=== PATIENT | male | born 1980 | race Caucasian/White ===

== ENCOUNTER 2020-07-25 19:30 | Emergency (ER) | payer OTHER, SELFPAY ==
[2020-07-25 19:56] VITALS: TEMP 37; O2SAT 94; BMI 37.8
--- NOTE | 2020-07-25 20:22 | ED.URI ---
HPI - URI/Sore Throat General Chief Complaint: Upper Respiratory Symptoms Stated Complaint: Asthma Source: patient Mode of arrival: ambulatory Limitations: no limitations History of Present Illness HPI Narrative: 40-year-old male with past medical history of asthma presents with 3 days of chest pressure, shortness of breath, oxygen saturation of 90%, cough, sore throat and headache. He does not describe any other symptoms. MD elicited complaint: fever, cough, sore throat and nasal congestion Onset (ago): day(s) (3) Consistency: constant Severity: moderate Pain scale (0-10): 6 Description of mucous: clear and watery Able to tolerate fluids by mouth: Yes Exacerbating factors: swallowing and exertion Relieving factors: nothing Associated symptoms: fever, chills, myalgias, headache, nasal congestion, sore throat, cough, chest pain and nausea Treatments prior to arrival: cold medicine Related Data Previous Rx's Medication Instructions Recorded dexamethasone 4 mg PO DAILY 5 Days #5 tab 07/25/20 Allergies Allergy/AdvReac Type Severity Reaction Status Date / Time morphine [MORPHINE] Allergy Unknown VOMITING Verified 07/25/20 20:29 Review of Systems Review of Systems: Constitutional: positive Fever, positive Chills, positive fatigue, positive Malaise ENT/Mouth: positive sore throat, positive runny nose Eyes: No Discharge Cardiovascular: No Chest Pain, No SOB Respiratory: No Cough, No Sputum, No Wheezing, No Smoke Exposure, No Dyspnea Gastrointestinal: No Nausea, No Vomiting, No Diarrhea Genitourinary: no irregular bleeding, No Dysuria, No Urinary Frequency, No Hematuria, No Urinary Incontinence, No Urgency, No Flank Pain, Musculoskeletal: positive Myalgia Skin: No rash Neuro: No Headache Yes all other systems are reviewed and are negative [facility] Past Medical History Attestation statement: The following information was validated with the patient. Medical History (Updated 07/25/20 @ 21:51 by Charisma Jesus NP) Asthma Social History Social History Alcohol intake: never Smoked in Last 30 Days: No Use of substances other than those prescribed or required for medical reasons: No Advance Directives: No Advance Directives Information Provided: Yes Physical Exam Vital Signs: Vital Signs: Last Vital Signs Temp 98.7 F 07/25/20 22:00 Pulse 114 H 12/17/20 22:00 Resp 14 07/25/20 22:00 BP 110/59 L 07/25/20 22:00 Pulse Ox 94 07/25/20 22:00 Body Mass Index 37.8 Appearance: Alert. Oriented X3. Moderate distress. Eyes: Pupils equal, round and reactive to light. ENT: Pharynx normal. Neck: Normal inspection. Neck supple. CVS: Tachycardic heart rate and rhythm. Pulses normal. Respiratory: No respiratory distress. Breath sounds diminished Abdomen: Soft and nontender. Skin: Skin warm and dry. Normal skin color. Normal skin turgor. Extremities: No lower extremity edema. Neuro: No motor deficit. No sensory deficit. Course Course Course Narrative: 40-year-old male with past medical history of asthma presents with COVID-19 symptoms. His O2 sat is 93% on room air and is tachycardic, plan is to test for COVID-19 rapid. We will resuscitate with 1 L of fluid however we will be cautious about the amount of fluid resuscitated as this is highly suspicious of a COVID viral infection. Patient is COVID positive, requiring 2 L of O2 NC to keep oxygen saturation above 92%. Plan of care is for ambulatory pulse ox. We will give dexamethasone. O2 sat ambulatory was 95 96%, plan of care is to discharge home. Patient verbalized understanding of and agrees to plan of care. MDM - URI/Sore Throat Differential Diagnosis Differential diagnosis: Likely upper respiratory infection, viral infection, bronchitis and influenza Medical Records Attestation: I reviewed the patient's medical records. Lab Data Attestation: I reviewed the patient's lab results. Result diagrams: 07/25/20 20:55 07/25/20 20:55 Labs: Lab Results 07/25/20 07/25/20 07/25/20 Range/Units 20:54 20:55 20:55 WBC 7.3 (4.8-10.8) X10*3/uL RBC 5.58 (4.60-5.80) X10*6/uL Hgb 15.9 (14.0-18.0) g/dl Hct 45.4 (42-52) % MCV 81.4 (80-98) fL MCH 28.5 (27.0-33.0) pg MCHC 35.0 (31.0-36.0) g/dl RDW 12.5 (11.0-16.0) % Plt Count 219 (160-400) X10*3/uL MPV 11.3 (9.4-12.4) fL Immature Gran % (Auto) 0.4 (0.0-0.4) % Neut % (Auto) 83.4 H (45-73) % Lymph % (Auto) 11.8 L (20-40) % [place] % (Auto) 4.3 (2-11) % Eos % (Auto) 0.0 (0-4) % Baso % (Auto) 0.1 (0-2) % Lymph # (Auto) 0.9 L (1.2-4.9) X10*3/uL [place] # (Auto) 0.3 (0.1-1.2) X10*3/uL Eos # (Auto) 0.0 (0.0-0.4) X10*3/uL Baso # (Auto) 0.0 (0.0-0.2) X10*3/uL Abs Immat Gran (auto) 0.03 (0.00-0.03) X10*3/uL Absolute Neuts (auto) 6.1 (2.0-8.3) X10*3/uL Absolute Nucleated RBC 0.000 (0.0-0.012) X10*3/uL Nucleated RBC % (auto) 0.0 (0.0-0.2) /100WBC Sodium 135 (135-145) mmol/L Potassium 3.9 (3.3-5.1) mmol/l Chloride 100 (96-108) mmol/L Carbon Dioxide 26 (22-29) mmol/L Anion Gap 13 (12-20) BUN 16 (9-16) mg/dL Creatinine 1.20 (0.5-1.4) mg/dL Estim Creat Clear Calc 87.3 Estimated GFR > 60 Random Glucose 92 (60-115) mg/dL Calcium 8.3 L (8.4-10.2) mg/dL COVID-19 (HERMILO) Positive A (Negative) COVID-19 Clin Com See Note Imaging Data Chest x-ray: Attestation: I personally reviewed and interpreted this imaging study as follows: Radiologist's impression: CLINICAL INFORMATION: Asthma. COMPARISON: None. TECHNIQUE: An AP view of the chest is provided. FINDINGS: The cardiac silhouette is not enlarged. The mediastinal and hilar contours are unremarkable. There are neither pleural effusions nor pneumothoraces. There is mild patchy airspace disease at both lung bases, left greater than right. The osseous structures are unremarkable. XR/XR chest 1V IMPRESSION: Mild left greater than right bibasilar patchy airspace disease. Recommendation is for a followup chest series to be obtained following treatment and/or resolution of symptoms to assure resolution of this appearance. Discharge Plan Discharge Clinical Impression: Viral infection, COVID-19 Upper respiratory infection Qualifiers: URI type: unspecified viral URI Qualified Code(s): J06.9 - Acute upper respiratory infection, unspecified Patient Disposition: Home, Self-Care Instructions: COVID-19 (Coronavirus Disease 2019) (ED) Additional Instructions: You tested positive for COVID-19. Maintain social isolation guidelines per state and Federal regulations. It is your responsibility to maintain these guidelines. We prescribe steroids, dexamethasone 4 mg. Please take this for the next 5 days preferably in the morning. If symptoms get worse or have difficulty breathing please return to the emergency department immediately. Thank you for choosing this emergency department for evaluation. Please follow-up with primary care physician as needed. Return to the emergency department for any new, concerning, or worsening symptoms. Prescriptions: New dexamethasone 4 mg tablet 4 mg PO DAILY 5 Days Qty: 5 RF: 0 Interventions: ED Discharge Assessment Last Done: 07/25/20 22:39 Discharge Date/Time: 07/25/20 22:51
[2020-07-25 20:40] VITALS: O2SAT 93
[2020-07-25 20:51] VITALS: BP 104/68; PULSE 113; RESP 19; TEMP 38.7; O2SAT 94
[2020-07-25] MEDS: 0.9 % Sodium Chloride 1,000 ML 999 ML IVCONT (20:51)
[2020-07-25] MEDS: Acetaminophen 325 MG TABLET 975 MG PO (21:04)
[2020-07-25 21:05] LABS: MANUAL DIFF FLAG NO
[2020-07-25 21:07] LABS: Basophils Percent Auto 0.1 % (0-2); Hematocrit 45.4 % (42-52); Hemoglobin 15.9 g/dl (14.0-18.0); Imm Gran Abs Auto 0.03 X10*3/uL (0.00-0.03); Imm Gran Pct Auto 0.4 % (0.0-0.4); Lymphocytes Absolute Auto 0.9 X10*3/uL (1.2-4.9); Lymphocytes Percent Auto 11.8 % (20-40); Mean Corpuscular Hemoglobin 28.5 pg (27.0-33.0); Mean Corpuscular Volume 81.4 fL (80-98); Mean Platelet Volume 11.3 fL (9.4-12.4); Monocytes Absolute Auto 0.3 X10*3/uL (0.1-1.2); Monocytes Percent Auto 4.3 % (2-11); Neutrophils Absolute Auto 6.1 X10*3/uL (2.0-8.3); Neutrophils Percent Auto 83.4 % (45-73); Platelet Count 219 X10*3/uL (160-400); Red Blood Count 5.58 X10*6/uL (4.60-5.80); Red Cell Distribution Width 12.5 % (11.0-16.0); White Blood Count 7.3 X10*3/uL (4.8-10.8)
[2020-07-25 21:20] LABS: COVID-19 Test Positive (Negative)
[2020-07-25 21:36] LABS: Anion Gap 13 (12-20); Blood Urea Nitrogen 16 mg/dL (9-16); Calcium 8.3 mg/dL (8.4-10.2); Carbon Dioxide 26 mmol/L (22-29); Chloride 100 mmol/L (96-108); Creatinine Clr Calc Pharmacy 87.3; Estimated Glomerular Filt Rate > 60; Glucose Random 92 mg/dL (60-115); Potassium 3.9 mmol/l (3.3-5.1); Sodium 135 mmol/L (135-145)
[2020-07-25 22:00] VITALS: BP 110/59; PULSE 114; RESP 14; TEMP 37.1; O2SAT 94
[2020-07-25] MEDS: dexAMETHasone 4 MG TABLET PO (22:03)
--- NOTE | 2020-07-25 22:37 | PC.NURSE ---
Pt was put on supplement oxygen at 2 Liters via NC d/t SOB. At room air, O2 was 93-94%, and O2 improved upon 2 L. to 95-96%. Pt stated that it feels better. Per [employer]USB[employer] TECHNICIAN, oxygen ambulation trial done. Pt maintained O2 sat 95-96% at room air. Per [employer]USB[employer] TECHNICIAN, pt can be discharged.
== END 2020-07-25 22:51 | disposition home or self-care (01) ==
PROVIDERS: Nurse Practitioner Family; Emergency Provider Emergency Medicine; PCP Family Medicine
DX: U07.1 COVID-19 (principal); J06.9 Acute upper respiratory infection, unspecified; R05 Cough; R51.9 Headache, unspecified; Z79.899 Other long term (current) drug therapy
CPT/HCPCS: 36415; 71045; 80048; 85025; 87071; 87147; 87635; 87880; 96360; 99284; 99285; J8540

== ENCOUNTER 2020-07-27 04:49 | Inpatient (IN) | payer OTHER, SELFPAY ==
[2020-07-27] VITALS (12 sets, daily range): BP systolic 107–123; BP diastolic 64–70; PULSE 18–118; RESP 18–115; TEMP 36.1–38.9; O2SAT 89–97; BMI 36.8
--- NOTE | 2020-07-27 | ECG_ITS ---
Test Reason : check qtc Blood Pressure : / mmHG Vent. Rate : 089 BPM Atrial Rate : 089 BPM P-R Int : 144 ms QRS Dur : 086 ms QT Int : 368 ms P-R-T Axes : 063 003 009 degrees QTc Int : 447 ms Normal sinus rhythm Normal ECG When compared with ECG of 27-JUL-2020 08:07, No significant change was found Referred By: Sreekanth Aponte Electronically Signed By:Juan David Crain
--- NOTE | 2020-07-27 05:28 | PC.NURSE ---
PT TO [facility] WITH C/O SOB, CHEST TIGHTNESS, THROAT TIGHTNESS X 2 DAYS. PT WAS TESTED POSITIVE FOR COVID YESTERDAY. PT CHG INTO GOWN.. PT PO 94% ON RA. PT PLACED ON 2L NC. PT AWAITING FOR MD'S EVAL.
--- NOTE | 2020-07-27 05:42 | ED.SOB ---
HPI - SOB/Dyspnea General Chief Complaint: Dyspnea Stated Complaint: Covid+/Sob Time Seen by Provider: 07/27/20 05:37 Source: patient Mode of arrival: ambulatory Limitations: no limitations History of Present Illness HPI Narrative: Patient has history of asthma COVID positive seen here on 07/25 with positive infiltrate discharged home on po Decadron comes back here for increased shortness of breath saturating 93% at room air dry cough MD elicited complaint: shortness of breath and cough Pertinent past history: asthma Onset (ago): hour(s) (2) Context: recent illness Related Data Previous Rx's Medication Instructions Recorded dexamethasone 4 mg PO DAILY 5 Days #5 tab 07/25/20 Allergies Allergy/AdvReac Type Severity Reaction Status Date / Time morphine [MORPHINE] Allergy Unknown VOMITING Verified 07/27/20 04:57 Review of Systems Review of Systems: Constitutional : No Weight loss, No Fever, No Chills ENT/Mouth : No sore throat, No Rhinorrhea Eyes: No Eye Pain, No Swelling Cardiovascular : no Chest Pain,, NoEdema, No Palpitations Respiratory :, No Sputum Gastrointestinal : no Nausea, No Vomiting, No Diarrhea, No abdominal Pain, No Hematochezia, No Melena Genitourinary : No Dysuria, No Urinary Frequency Musculoskeletal : No joint pain, No Myalgias, No Joint Swelling Skin : No Skin Lesions, No rash Neuro : No Weakness, No Numbness, pos Dizziness, No Headache Psych : No Anxiety/Panic, No Depression Heme/Lymph: No Bruising, No Lymphadenopathy Endocrine : No Polyuria, No Polydipsia All other systems reviewed and are negative PMFSH Past Medical History Medical History Asthma Social History Social History Alcohol intake: never Advance Directives: No Advance Directives Information Provided: No Physical Exam Vital Signs: Vital Signs: Last Vital Signs Temp 102 F H 07/27/20 06:00 Pulse 118 H 07/27/20 06:00 Resp 18 07/27/20 06:00 BP 121/66 07/27/20 06:00 Pulse Ox 94 07/27/20 06:00 Body Mass Index 36.8 VITAL SIGNS: Reviewed. GENERAL: Well developed, well nourished, in no acute distress. HEAD: Normocephalic/atraumatic, EYES: PERRLA No pallor/icterus noted OROPHARYNX: Oral mucosa moist no oral lesions NECK: Supple, no adenopathy LUNGS: Decreased air entry b/l No adventitious sounds or accessory muscle use CARDIOVASCULAR: Regular rate and rhythm without noted murmurs, no JVD or lower extremity edema. ABDOMEN: Soft, non-tender, non-distended with normal bowel sounds. No rigidity. No guarding. No palpable masses or hernias noted MUSCULOSKELETAL: No tenderness, deformities, EXTREMITIES: No cyanosis or edema. SKIN: no rashes, ulcerations, jaundice, pallor, NEUROLOGIC: Alert and oriented x 3. Strength and sensation to light touch were grossly intact normal speech MDM - SOB/Dyspnea MDM Narrative Medical decision making narrative: Patient COVID positive with history of asthma saturating 93% at room air on Decadron repeat chest x-ray negative for any worsening of the infiltrate. Patient says he is not feeling good repeat temperature was 102 degrees will give Tylenol IV fluids recheck the labs more albuterol treatments, patient signed out to Dr. Zheng pending reevaluation awaiting for the labs Medical Records Attestation: I reviewed the patient's medical records. Lab Data Attestation: I reviewed the patient's lab results. Imaging Data Chest x-ray: Radiologist's impression: COMPARISON: 07/25/2020. TECHNIQUE: An AP view of the chest is provided. FINDINGS: The cardiac silhouette is not enlarged. The mediastinal and hilar contours are unremarkable. There are neither pleural effusions nor pneumothoraces. There is mild patchy airspace disease present throughout both lungs. The osseous structures are unremarkable. XR/XR chest 1V IMPRESSION: Mild nonspecific patchy airspace disease noted throughout both lungs. Discharge Plan Discharge Prescriptions: No Action dexamethasone 4 mg tablet 4 mg PO DAILY 5 Days Qty: 5 RF: 0
--- NOTE | 2020-07-27 05:43 | XR_ITS ---
EXAMINATION: CHEST 1 VIEW CLINICAL INFORMATION: Shortness of breath. Covid positivity. COMPARISON: 07/25/2020. TECHNIQUE: An AP view of the chest is provided. FINDINGS: The cardiac silhouette is not enlarged. The mediastinal and hilar contours are unremarkable. There are neither pleural effusions nor pneumothoraces. There is mild patchy airspace disease present throughout both lungs. The osseous structures are unremarkable. XR/XR chest 1V IMPRESSION: Mild nonspecific patchy airspace disease noted throughout both lungs.
[2020-07-27] MEDS: Albuterol Sulfate 90 MCG 8 GM INHALER 4 PUFF INHALE ×2 (05:49→07:29)
[2020-07-27] MEDS: dexAMETHasone 4 MG TABLET PO (05:59)
--- NOTE | 2020-07-27 06:11 | PC.NURSE ---
PT MEDICATED PER EMAR. PT REQUESTED WATER. WILL CONTINUE TO MONITOR PT.
--- NOTE | 2020-07-27 06:13 | PC.NURSE ---
X-RAY IN ROOM FOR PORTABLE X-RAY.
[2020-07-27] MEDS: 0.9 % Sodium Chloride 1,000 ML 999 ML IVCONT (06:52)
[2020-07-27] MEDS: Acetaminophen 325 MG TABLET 650 MG PO ×2 (07:15→19:49)
[2020-07-27] MEDS: guaiFEN/Codeine SF 200/20/10ML 10 ML LIQUID PO (07:15)
[2020-07-27 07:17] LABS: Basophils Percent Auto 0.1 % (0-2); Hematocrit 44.8 % (42-52); Hemoglobin 15.6 g/dl (14.0-18.0); Imm Gran Abs Auto 0.03 X10*3/uL (0.00-0.03); Imm Gran Pct Auto 0.4 % (0.0-0.4); Lymphocytes Absolute Auto 0.8 X10*3/uL (1.2-4.9); Lymphocytes Percent Auto 9.1 % (20-40); Mean Corpuscular HGB Conc 34.8 g/dl (31.0-36.0); Mean Corpuscular Hemoglobin 28.2 pg (27.0-33.0); Mean Corpuscular Volume 80.9 fL (80-98); Mean Platelet Volume 10.8 fL (9.4-12.4); Monocytes Absolute Auto 0.4 X10*3/uL (0.1-1.2); Monocytes Percent Auto 5.3 % (2-11); Neutrophils Absolute Auto 7.1 X10*3/uL (2.0-8.3); Neutrophils Percent Auto 85.1 % (45-73); Platelet Count 219 X10*3/uL (160-400); Red Blood Count 5.54 X10*6/uL (4.60-5.80); Red Cell Distribution Width 12.3 % (11.0-16.0); White Blood Count 8.3 X10*3/uL (4.8-10.8)
[2020-07-27 07:18] LABS: MANUAL DIFF FLAG NO
[2020-07-27 07:32] LABS: D Dimer 412 NG/ML
[2020-07-27 07:42] LABS: Lactic Acid 0.9 mmol/L (0.5-2.0)
--- NOTE | 2020-07-27 07:46 | ECG_ITS ---
Test Reason : SOB Blood Pressure : / mmHG Vent. Rate : 107 BPM Atrial Rate : 107 BPM P-R Int : 138 ms QRS Dur : 086 ms QT Int : 338 ms P-R-T Axes : 046 004 016 degrees QTc Int : 451 ms Sinus tachycardia Otherwise normal ECG No previous ECGs available Referred By: Sreekanth Aponte Electronically Signed By:Juan David Crain
[2020-07-27 07:47] LABS: Alanine Aminotransferase 26 U/L (0-40); Albumin Level 3.8 g/dL (3.5-5.0); Alkaline Phosphatase 62 U/L (39-117); Anion Gap 13 (12-20); Aspartate Amino Transferase 19 U/L (5-37); Bilirubin Direct 0.4 mg/dL (0.0-0.5); Bilirubin Total 0.8 mg/dL (0.0-1.0); Blood Urea Nitrogen 17 mg/dL (9-16); Calcium 8.6 mg/dL (8.4-10.2); Carbon Dioxide 23 mmol/L (22-29); Chloride 103 mmol/L (96-108); Creatinine Clr Calc Pharmacy 95.2; Estimated Glomerular Filt Rate > 60; Glucose Random 121 mg/dL (60-115); Potassium 4.1 mmol/l (3.3-5.1); Sodium 135 mmol/L (135-145); Total Protein 6.6 g/dL (6.5-8.0)
[2020-07-27 08:13] LABS: Lactate Dehydrogenase 330 U/L (118-273)
[2020-07-27 08:38] LABS: Ferritin 542 ng/mL (20-250)
[2020-07-27 09:23] LABS: Procalcitonin 0.09 ng/mL
[2020-07-27 09:50] LABS: Troponin-I High Sensitivity 3.7 ng/L (<3.5-35.0)
[2020-07-27] MEDS: Enoxaparin Sodium 40 MG/0.4 ML SYRINGE SUBCUT (11:08)
--- NOTE | 2020-07-27 11:18 | PM.IMHP ---
History of Present Illness Date of Service: 07/27/20 Chief Complaint: sob fever cough 40-year-old male with history of asthma presented with fever , body aches cough and trouble breathing, patient reported he traveled l to [place] on July 18 started having symptoms after that, patient was having fever flu-like symptoms, patient flew back on July 24, shortness of breath was worsening, in the ER patient found to be febrile and was hypoxic, patient was given dexamethasone and inhaler, patient was tested positive for COVID, chest x-ray shows bilateral infiltrates, denies any nausea vomiting , patient reported he has asthma since childhood , denies smoking alcohol use , reported occasionally use weed Review of Systems Constitutional: Constitutional: Reports body ache(s), Reports fatigue and Reports fever(s) Cardiovascular: Cardiovascular: Denies chest pain and Reports dyspnea Respiratory: Respiratory: Reports cough and Reports dyspnea Gastrointestinal: Gastrointestinal: Denies abdominal pain Musculoskeletal: Musculoskeletal: Reports myalgias Neurologic: Denies focal weakness Endocrine: Endocrine: Reports fatigue [facility] Medical History (Updated 07/27/20 @ 07:48 by Jacinta Zheng DO) Asthma Functional capacity: independent ambulation Family History (Updated 07/27/20 @ 15:26 by Sreekanth Aponte MD) Other HTN (hypertension) Surgical History (Updated 07/27/20 @ 15:27 by Sreekanth Aponte MD) No history of previous surgery Social History Household Members: Family Housing: Apartment Do you presently have visiting nurse or other home services: No Alcohol intake: never Smoking Status: Never smoker Smoked in Last 30 Days: No Use of substances other than those prescribed or required for medical reasons: No Currently Displaying Signs/Symptoms of Drug Intoxication Withdrawal: No Any prior treatment program specific to substance use: No Have you been hit, kicked, punched, or otherwise hurt by someone within the past year? If so, by whom?: No Do you feel safe in your current relationship?: No Is there a partner from a previous relationship who is making you feel unsafe now?: No Are you made to feel afraid or neglected: No Advance Directives: No Advance Directives Information Provided: No Advance Directives on File: No Do you have thoughts of harming others: None Do you have a plan to hurt others: No Plan Recently lost weight without trying: No Meds Allergies Allergy/AdvReac Type Severity Reaction Status Date / Time morphine [MORPHINE] Allergy Unknown VOMITING Verified 07/27/20 04:57 Home Medications Medication Instructions Recorded Confirmed Type albuterol sulfate See Rx Instructions .ROUTE 07/27/20 History .COMPLEX PRN Physical Exam Vital Signs and Narrative: Vital Signs: Last Vital Signs Temp 97.0 F 07/27/20 10:49 Pulse 95 07/27/20 10:49 Resp 20 07/27/20 10:49 BP 112/67 07/27/20 10:49 Pulse Ox 95 07/27/20 10:49 Body Mass Index 36.8 Const: General: no acute distress Orientation/consciousness: patient oriented x3 Eyes: General: appearance normal, both eyes and all related structures Neck: Yes normal visual inspection Resp: Effort & Inspection: Actively coughing Auscultation: wheezes Cardio: Jugular venous distension: no JVD Rate: regular rate Rhythm: regular rhythm GI: Inspection: Yes normal to inspection Neuro: General: patient oriented x3 Motor exam (neuro): 5/5 motor strength present throughout Results Labs CBC and Chem 7: 07/27/20 06:50 07/27/20 06:50 Labs: Laboratory Results - last 24 hr 07/27/20 07/27/20 07/27/20 06:50 06:50 06:50 MCV 80.9 MCH 28.2 MCHC 34.8 RDW 12.3 Plt Count 219 MPV 10.8 Immature Gran % (Auto) 0.4 Neut % (Auto) 85.1 H Lymph % (Auto) 9.1 L [place] % (Auto) 5.3 Eos % (Auto) 0.0 Baso % (Auto) 0.1 Lymph # (Auto) 0.8 L [place] # (Auto) 0.4 Eos # (Auto) 0.0 Baso # (Auto) 0.0 Abs Immat Gran (auto) 0.03 Absolute Neuts (auto) 7.1 Absolute Nucleated RBC 0.000 Nucleated RBC % (auto) 0.0 D-Dimer 412 Anion Gap 13 Estim Creat Clear Calc 95.2 Estimated GFR > 60 Random Glucose 121 H Lactic Acid Calcium 8.6 Ferritin 542 H Total Bilirubin 0.8 Direct Bilirubin 0.4 AST 19 ALT 26 Alkaline Phosphatase 62 Lactate Dehydrogenase 330 H Troponin I High Sens Total Protein 6.6 Albumin 3.8 Procalcitonin 07/27/20 07/27/20 07/27/20 06:50 06:50 06:50 MCV MCH MCHC RDW Plt Count MPV Immature Gran % (Auto) Neut % (Auto) Lymph % (Auto) [place] % (Auto) Eos % (Auto) Baso % (Auto) Lymph # (Auto) [place] # (Auto) Eos # (Auto) Baso # (Auto) Abs Immat Gran (auto) Absolute Neuts (auto) Absolute Nucleated RBC Nucleated RBC % (auto) D-Dimer Anion Gap Estim Creat Clear Calc Estimated GFR Random Glucose Lactic Acid 0.9 Calcium Ferritin Total Bilirubin Direct Bilirubin AST ALT Alkaline Phosphatase Lactate Dehydrogenase Troponin I High Sens 3.7 Total Protein Albumin Procalcitonin 0.09 Imaging Radiologist's Impressions: Impressions Chest X-Ray 07/27/20 05:43 IMPRESSION: Mild nonspecific patchy airspace disease noted throughout both lungs. Assessment and Plan (1) COVID-19: Status: Acute (2) Asthma with exacerbation: Qualifiers: Asthma persistence: persistent Asthma severity: moderate Qualified Code(s): J45.41 - Moderate persistent asthma with (acute) exacerbation Status: Acute (3) Hypoxia: Status: Acute Acute hypoxic respiratory failure secondary to COVID pneumonia asthma exacerbation continue oxygen supplementation COVID pneumonia continue dexamethasone continue isolation continue supportive management id consult continue antibiotic follow-up cultures Asthma exacerbation continue dexamethasone continue albuterol continue Breo no nebulizer secondary to COVID DVT prophylaxis Lovenox
[2020-07-27] MEDS: cefTRIAXone sodium 1 GM in 0.9 % Sodium Chloride 50 ML IV (13:25)
[2020-07-27] MEDS: Flu Vacc QS2020-21(6mos up)/PF 0.5 ML SYRINGE IM (13:26)
[2020-07-27] MEDS: Azithromycin 500 MG in 0.9 % Sodium Chloride 250 ML 125 MG IV (15:14)
[2020-07-27 19:23] LABS: Procalcitonin 0.09 ng/mL
--- NOTE | 2020-07-27 22:13 | W.PM.IDCN ---
History of Present Illness Data of Consult Service Date: 07/27/20 Requesting physician: Sreekanth Aponte Primary Care Provider: Unknown Physician HPI Reason for consult: COVID He presents to hospital with shourtness of breath for 9 days He has no significant fever or chills No one else is ill He is on 2 liters oxygen and has saturation 95% He has some yellow sputum Review of Systems Respiratory: Respiratory: Reports no additional respiratory complaints Neurologic: Denies focal weakness PMFSH Past Medical History Medical History Asthma Functional capacity: independent ambulation Family History Family History Other HTN (hypertension) Surgical History Surgical History No history of previous surgery Social History Social History Household Members: Family Housing: Apartment Do you presently have visiting nurse or other home services: No Alcohol intake: never Smoking Status: Never smoker Smoked in Last 30 Days: No Use of substances other than those prescribed or required for medical reasons: No Currently Displaying Signs/Symptoms of Drug Intoxication Withdrawal: No Any prior treatment program specific to substance use: No Have you been hit, kicked, punched, or otherwise hurt by someone within the past year? If so, by whom?: No Do you feel safe in your current relationship?: No Is there a partner from a previous relationship who is making you feel unsafe now?: No Are you made to feel afraid or neglected: No Advance Directives: No Advance Directives Information Provided: No Advance Directives on File: No Do you have thoughts of harming others: None Do you have a plan to hurt others: No Plan Recently lost weight without trying: No Meds Allergies Allergy/AdvReac Type Severity Reaction Status Date / Time morphine [MORPHINE] Allergy Unknown VOMITING Verified 07/27/20 04:57 Home Medications Medication Instructions Recorded Confirmed Type albuterol sulfate See Rx Instructions .ROUTE 07/27/20 History .COMPLEX PRN Physical Exam Vital Signs: Vital Signs: Last Vital Signs Temp 100.7 F H 07/27/20 19:24 Pulse 100 07/27/20 19:24 Resp 19 07/27/20 19:24 BP 109/70 07/27/20 19:24 Pulse Ox 95 07/27/20 19:24 Body Mass Index 36.8 Const: General: cooperative Orientation/consciousness: oriented to person, oriented to place and oriented to time HENMT: Head: Yes normal to inspection Mouth: oropharynx normal Resp: Effort & Inspection: normal respiratory effort Cardio: Rate: regular rate Rhythm: regular rhythm GI: Inspection: Yes normal to inspection Palpation (GI): nontender : General: Yes no CVA tenderness Back/Spine/Pelvis: Back: no CVA tenderness Skin: General skin exam: no rashes or lesions noted Neuro: General: oriented to person, oriented to place and oriented to time Cognition (Neuro): normal cognition Assessment and Plan (1) COVID-19: Problem details: He has some baseline asthma contributing to respiratory efforts He has COVID with minimal oxygen requirements,may be mostly asthma Status: Acute Would give Dexamethasone for COVID and asthma Would not give Remdesivir ,getting late 10 d nearly and not on much oxygen Would check procalcitonin and stop antibiotics if low (2) Asthma with exacerbation: Qualifiers: Asthma persistence: persistent Asthma severity: moderate Qualified Code(s): J45.41 - Moderate persistent asthma with (acute) exacerbation Status: Acute (3) Hypoxia: Status: Acute Results Labs CBC & Chem 7: 07/27/20 06:50 07/27/20 06:50 Labs: Short CBC 07/27/20 Range/Units 06:50 WBC 8.3 (4.8-10.8) X10*3/uL Hgb 15.6 (14.0-18.0) g/dl Hct 44.8 (42-52) % Plt Count 219 (160-400) X10*3/uL BMP 07/27/20 06:50 Sodium 135 Potassium 4.1 Chloride 103 Carbon Dioxide 23 BUN 17 H Creatinine 1.24 Calcium 8.6 Liver Function 07/27/20 Range/Units 06:50 Total Bilirubin 0.8 (0.0-1.0) mg/dL Direct Bilirubin 0.4 (0.0-0.5) mg/dL AST 19 (5-37) U/L ALT 26 (0-40) U/L Alkaline Phosphatase 62 (39-117) U/L Albumin 3.8 (3.5-5.0) g/dL
[2020-07-28] VITALS (9 sets, daily range): BP systolic 105–130; BP diastolic 55–71; PULSE 80–115; RESP 18–20; TEMP 35.8–38.9; O2SAT 92–97
--- NOTE | 2020-07-28 | ECG_ITS ---
Test Reason : CHEST PRESSURE Blood Pressure : / mmHG Vent. Rate : 113 BPM Atrial Rate : 113 BPM P-R Int : 142 ms QRS Dur : 082 ms QT Int : 320 ms P-R-T Axes : 051 000 015 degrees QTc Int : 438 ms Sinus tachycardia Otherwise normal ECG When compared to the previous EKG of No significant changes seen Referred By: Rudolph Collins Electronically Signed By:Juan David Crain
[2020-07-28] MEDS: 0.9 % Sodium Chloride Flush 3 ML SYRINGE IVFLUSH ×3 (00:06→16:34)
--- NOTE | 2020-07-28 01:19 | PC.NURSE ---
Addendum entered by Tiffany Roe RN 07/28/20 06:39: Temp recheck after tylenol 102.1, orally, Hr 114, applying ice, MD aware. Addendum entered by Tiffany Roe RN 07/28/20 05:29: 0350-Patient complained of shortness of breath sats 92% on 2L nasal cannula and patient feeling nausea and a need to vomit, RR-24, [id number]. Given IV zofran, O2 titrated up to 4L sats 92-95%. Patient used rescue inhaler that was given in ED and still feeling no relief and very anxious (feeling like he cannot breathe). Discussed with MD and 1mg IV ativan ordered and given as prescribed at 0400. Zofran and ativan effective sats 92-95% RR(18-20) and HR(120's) improving. Tylenol 650 mg given as ordered due to low grade fever 99.9. Patient reports some improvement in symptoms, resting in bed eyes closed will continue to monitor. Addendum entered by Tiffany Roe RN 07/28/20 01:43: After review patient has history of adverse reaction to morphine of vomiting. reviewed with patient, who reports some improvement in chest pressure and does not want any medication at this time. notified and we will hold morphine at this time. Original Note: Patient c/o chest pressure worsening with breathing since admission. HR 108, ST on tele, O2 sats 96% on 2L nasal cannula. BP WNL, Patient used rescue inhaler at bedside and reports no relief, ekg ordered-ST 110's WNL . notified, troponin ordered and Morphine 3mg IV ordered awaiting to be verified to administer. Patient encouraged to cough and deep breath as well as self proning when possible. Will continue to monitor.
[2020-07-28 02:40] LABS: Troponin-I High Sensitivity < 3.5 ng/L (<3.5-35.0)
[2020-07-28] MEDS: ondansetron HCL 4 MG/2 ML VIAL IVPUSH (03:46)
[2020-07-28] MEDS: LORazepam 2 MG/ML VIAL 1 MG IVPUSH (03:59)
[2020-07-28] MEDS: Acetaminophen 325 MG TABLET 650 MG PO ×3 (04:58→23:58)
[2020-07-28 06:40] LABS: MANUAL DIFF FLAG NO
[2020-07-28 07:09] LABS: Anion Gap 13 (12-20); Blood Urea Nitrogen 14 mg/dL (9-16); Calcium 8.3 mg/dL (8.4-10.2); Carbon Dioxide 23 mmol/L (22-29); Chloride 105 mmol/L (96-108); Creatinine Clr Calc Pharmacy 105.4; Estimated Glomerular Filt Rate > 60; Glucose Random 112 mg/dL (60-115); Potassium 3.8 mmol/l (3.3-5.1); Sodium 137 mmol/L (135-145)
[2020-07-28 07:13] LABS: Hematocrit 42.9 % (42-52); Hemoglobin 14.9 g/dl (14.0-18.0); Imm Gran Abs Auto 0.07 X10*3/uL (0.00-0.03); Imm Gran Pct Auto 0.7 % (0.0-0.4); Lymphocytes Absolute Auto 1.5 X10*3/uL (1.2-4.9); Lymphocytes Percent Auto 14.7 % (20-40); Mean Corpuscular HGB Conc 34.7 g/dl (31.0-36.0); Mean Corpuscular Volume 80.5 fL (80-98); Mean Platelet Volume 11.2 fL (9.4-12.4); Monocytes Absolute Auto 0.9 X10*3/uL (0.1-1.2); Monocytes Percent Auto 8.3 % (2-11); Neutrophils Percent Auto 76.3 % (45-73); Platelet Count 251 X10*3/uL (160-400); Red Blood Count 5.33 X10*6/uL (4.60-5.80); Red Cell Distribution Width 12.6 % (11.0-16.0); White Blood Count 10.4 X10*3/uL (4.8-10.8)
[2020-07-28] MEDS: Azithromycin 500 MG in 0.9 % Sodium Chloride 250 ML 125 MG IV (08:37)
[2020-07-28] MEDS: dexAMETHasone sod phosphate 4 MG/ML VIAL 6 MG IVPUSH (08:38)
[2020-07-28] MEDS: Enoxaparin Sodium 40 MG/0.4 ML SYRINGE SUBCUT (12:04)
[2020-07-28] MEDS: cefTRIAXone sodium 1 GM in 0.9 % Sodium Chloride 50 ML IV (12:04)
--- NOTE | 2020-07-28 12:59 | HO.PM.IMPN ---
Subjective Subjective Date of Service: 07/28/20 Interval History: Patient seen and examined at bedside patient reported feeling tired requiring 4 L of oxygen Constitutional Constitutional: Reports body ache(s), Reports fatigue and Reports fever(s) Cardiovascular Cardiovascular: Denies chest pain and Reports dyspnea Respiratory Respiratory: Reports cough and Reports dyspnea Gastrointestinal Gastrointestinal: Denies abdominal pain Musculoskeletal Musculoskeletal: Reports myalgias Neurologic Neurologic: Denies focal weakness Endocrine Endocrine: Reports fatigue Physical Exam Vital Signs: Vital Signs: Last Vital Signs Temp 100.9 F H 07/28/20 12:00 Pulse 98 07/28/20 12:00 Resp 20 07/28/20 12:00 BP 116/62 07/28/20 12:00 Pulse Ox 92 07/28/20 12:00 Body Mass Index 36.8 Const: General: no acute distress Orientation/consciousness: patient oriented x3 Eyes: General: appearance normal, both eyes and all related structures Neck: Neck: Yes normal visual inspection Resp: Effort & Inspection: Actively coughing Auscultation: wheezes Cardio: Jugular venous distension: no JVD Rate: regular rate Rhythm: regular rhythm GI: Inspection: Yes normal to inspection Neuro: General: patient oriented x3 Motor exam (neuro): 5/5 motor strength present throughout Objective Data Current Medications Generic Name Dose Route Start Last Admin Trade Name Freq PRN Reason Stop Dose Admin Acetaminophen 650 mg 07/27/20 19:31 07/28/20 12:18 Acetaminophen 325 Mg Tablet PO 650 mg Q4H PRN Administration Fever Albuterol Sulfate 1 puff 07/27/20 10:49 Albuterol Sulfate 90 Mcg 8 Gm Inhaler INHALE RQ4H PRN Shortness of Breath/Wheezing Dexamethasone Sodium Phosphate 6 mg 07/28/20 09:00 07/28/20 08:38 Dexamethasone Sod Phosphate 4 Mg/Ml Vial IVPUSH 6 mg DAILY FLORENTIN Administration Enoxaparin Sodium 40 mg 07/27/20 11:00 07/28/20 12:04 Enoxaparin Sodium 40 Mg/0.4 Ml Syringe SUBCUT 40 mg Q24H FLORENTIN Administration Fluticasone/Vilanterol 1 puff 07/28/20 08:00 07/28/20 07:10 Fluticasone/Vilanterol 200/25 Blst.W.Dev INHALE Not Given RDAILY FLORENTIN Ceftriaxone Sodium 1 gm/ 50 mls @ 100 mls/hr 07/27/20 12:00 07/28/20 12:04 Sodium Chloride IV 100 mls/hr Q24H FLORENTIN Administration Azithromycin 500 mg/ Sodium 250 mls @ 125 mls/hr 07/27/20 12:00 07/28/20 10:51 Chloride IV Infused DAILY FLORENTIN Infusion Ondansetron HCl 4 mg 07/28/20 03:29 07/28/20 03:46 Ondansetron Hcl 4 Mg/2 Ml Vial IVPUSH 4 mg Q8H PRN Administration Nausea and Vomiting Pharmacy Consult 1 each 07/27/20 07:47 Consult Rx Perform Med Rec MISCELLANE ONCE PRN Consult order Sodium Chloride 3 ml 07/27/20 16:00 07/28/20 08:38 0.9 % Sodium Chloride Flush 3 Ml Syringe IVFLUSH 3 ml QSHIFT FLORENTIN Administration Labs CBC & Chem 7: 07/28/20 06:19 07/28/20 06:21 Microbiology Microbiology Results: Microbiology 07/27/20 06:50 Blood - Venous Blood Culture - Preliminary No growth after 24 hours. 07/27/20 06:49 Blood - Venous Blood Culture - Preliminary No growth after 24 hours. Assessment and Plan (1) COVID-19: Problem details: He has some baseline asthma contributing to respiratory efforts He has COVID with minimal oxygen requirements,may be mostly asthma Status: Acute (2) Asthma with exacerbation: Status: Acute (3) Hypoxia: Status: Acute Assessment and Plan: Acute hypoxic respiratory failure secondary to COVID pneumonia asthma exacerbation continue oxygen supplementation COVID pneumonia continue dexamethasone continue isolation continue supportive management id consulted recomended continuing dexamethasone continue antibiotic follow-up cultures currently on 4 L Asthma exacerbation continue dexamethasone continue albuterol continue Breo No nebulizer secondary to COVID DVT prophylaxis Lovenox
--- NOTE | 2020-07-28 13:19 | P.PNIM_ITS ---
Subjective Subjective Date of Service: 07/28/20 Physical Exam Vital Signs: Vital Signs: Last Vital Signs Temp 100.9 F H 07/28/20 12:00 Pulse 98 07/28/20 12:00 Resp 20 07/28/20 12:00 BP 116/62 07/28/20 12:00 Pulse Ox 92 07/28/20 12:00 Body Mass Index 36.8 Objective Data Current Medications Generic Name Dose Route Start Last Admin Trade Name Freq PRN Reason Stop Dose Admin Acetaminophen 650 mg 07/27/20 19:31 07/28/20 12:18 Acetaminophen 325 Mg Tablet PO 650 mg Q4H PRN Administration Fever Albuterol Sulfate 1 puff 07/27/20 10:49 Albuterol Sulfate 90 Mcg 8 Gm Inhaler INHALE RQ4H PRN Shortness of Breath/Wheezing Dexamethasone Sodium Phosphate 6 mg 07/28/20 09:00 07/28/20 08:38 Dexamethasone Sod Phosphate 4 Mg/Ml Vial IVPUSH 6 mg DAILY FLORENTIN Administration Enoxaparin Sodium 40 mg 07/27/20 11:00 07/28/20 12:04 Enoxaparin Sodium 40 Mg/0.4 Ml Syringe SUBCUT 40 mg Q24H FLORENTIN Administration Fluticasone/Vilanterol 1 puff 07/28/20 08:00 07/28/20 07:10 Fluticasone/Vilanterol 200/25 Blst.W.Dev INHALE Not Given RDAILY [facility] Ceftriaxone Sodium 1 gm/ 50 mls @ 100 mls/hr 07/27/20 12:00 07/28/20 13:07 Sodium Chloride IV Infused Q24H FLORENTIN Infusion Azithromycin 500 mg/ Sodium 250 mls @ 125 mls/hr 07/27/20 12:00 07/28/20 10:51 Chloride IV Infused DAILY FLORENTIN Infusion Ondansetron HCl 4 mg 07/28/20 03:29 07/28/20 03:46 Ondansetron Hcl 4 Mg/2 Ml Vial IVPUSH 4 mg Q8H PRN Administration Nausea and Vomiting Pharmacy Consult 1 each 07/27/20 07:47 Consult Rx Perform Med Rec MISCELLANE ONCE PRN Consult order Sodium Chloride 3 ml 07/27/20 16:00 07/28/20 08:38 0.9 % Sodium Chloride Flush 3 Ml Syringe IVFLUSH 3 ml QSHIFT FLORENTIN Administration Labs CBC & Chem 7: 07/28/20 06:19 07/28/20 06:21 Microbiology Microbiology Results: Microbiology 07/27/20 06:50 Blood - Venous Blood Culture - Preliminary No growth after 24 hours. 07/27/20 06:49 Blood - Venous Blood Culture - Preliminary No growth after 24 hours.
--- NOTE | 2020-07-28 13:26 | MHC.CM.PN ---
CM CONTACTED PT VIA HIS CELL PHONE ([phone]). PT REPORTS HE LIVES WITH HIS AND DAUGHTER AND IS FULLY INDEPENDENT WITH CARE AND MOBILITY. 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 PT REPORTS HIS PCP IS DR MARCH. PT IS INTERESTED IN INFORMATION ABOUT COMPLETING A HCP. CM WILL LEAVE INFO ON HIS CHART TO BE INCLUDED IN HIS DISCHARGE ENVELOPE. CURRENT DC PLAN IS HOME WITH NO SERVICES PT WILL NEED A RETURN TO WORK NOTE PT WILL SELF ARRANGE TRANSPORTATION
[2020-07-29] VITALS (7 sets, daily range): BP systolic 107–117; BP diastolic 64–72; PULSE 84–94; RESP 18; TEMP 36.3–37.4; O2SAT 92–95; BMI 36.8
[2020-07-29] MEDS: 0.9 % Sodium Chloride Flush 3 ML SYRINGE IVFLUSH ×4 (00:16→21:28)
--- NOTE | 2020-07-29 04:34 | PC.NURSE ---
pt c/o cp within mid chest pt states he had this pain yesterday ekg was done which is normal per imc rn and was sent to dr Knott pt also had fever 101.5 , after tylenol given 650 mg po fever was down to 98 and pt was taking some water and ice chips feeling better now.
[2020-07-29] MEDS: ondansetron HCL 4 MG/2 ML VIAL IVPUSH (04:59)
[2020-07-29] MEDS: Fluticasone/Vilanterol 200/25 BLST.W.DEV 1 PUFF INHALE (07:43)
[2020-07-29 07:49] LABS: HIV AB/AG Nonreactive (Nonreactive); HIV Num 1 0.16 S/CO (0.00-0.99)
[2020-07-29] MEDS: dexAMETHasone sod phosphate 4 MG/ML VIAL 6 MG IVPUSH (09:28)
[2020-07-29] MEDS: Azithromycin 500 MG in 0.9 % Sodium Chloride 250 ML 125 MG IV (09:28)
--- NOTE | 2020-07-29 11:25 | MHC.CM.PN ---
Patient is requiring 4 liters of O2 and is on IV Zithromax, IV Ceftriaxone and IV dexamethasone. Patients discharge plan is home no services when medically stable. Patient will set up own transport. CM will continue to follow patient for discharge needs.
[2020-07-29] MEDS: Enoxaparin Sodium 40 MG/0.4 ML SYRINGE SUBCUT (11:41)
--- NOTE | 2020-07-29 16:44 | PC.NURSE ---
Pt c/o diarrhea, requesting something to help. Dr. Ambrocio made aware. To place order for stool sample/check c.dif. If clear, to order Imodium. Will continue to monitor.
--- NOTE | 2020-07-29 20:00 | HO.PM.IMPN ---
Subjective Subjective Date of Service: 07/30/20 Interval History: covid inf. Review of Systems Patient still feels short of breath, denies any chest pain or abdominal pain cough or sputum. Physical Exam Vital Signs: Vital Signs: Last Vital Signs Temp 99.3 F 07/29/20 16:00 Pulse 93 07/29/20 16:00 Resp 18 07/29/20 16:00 BP 115/65 07/29/20 16:00 Pulse Ox 95 07/29/20 16:00 Body Mass Index 36.8 Physical exam: Cvs: rrr, [id number] , no murmur res: Grossly fair entry, slightly diminished at bases abd: no rebound or guarding ,nt, bs present. ext pulses present , no cyanosis neuro: axo3 , nonfocal. Objective Data Current Medications Generic Name Dose Route Start Last Admin Trade Name Freq PRN Reason Stop Dose Admin Acetaminophen 650 mg 07/27/20 19:31 07/28/20 23:58 Acetaminophen 325 Mg Tablet PO 650 mg Q4H PRN Administration Fever Albuterol Sulfate 1 puff 07/27/20 10:49 Albuterol Sulfate 90 Mcg 8 Gm Inhaler INHALE RQ4H PRN Shortness of Breath/Wheezing Dexamethasone Sodium Phosphate 6 mg 07/28/20 09:00 07/29/20 09:28 Dexamethasone Sod Phosphate 4 Mg/Ml Vial IVPUSH 6 mg DAILY LFORENTIN Administration Enoxaparin Sodium 40 mg 07/27/20 11:00 07/29/20 11:41 Enoxaparin Sodium 40 Mg/0.4 Ml Syringe SUBCUT 40 mg Q24H FLORENTIN Administration Fluticasone/Vilanterol 1 puff 07/28/20 08:00 07/29/20 07:43 Fluticasone/Vilanterol 200/25 Blst.W.Dev INHALE 1 puff RDAILY FLORENTIN Administration Ondansetron HCl 4 mg 07/28/20 03:29 07/29/20 04:59 Ondansetron Hcl 4 Mg/2 Ml Vial IVPUSH 4 mg Q8H PRN Administration Nausea and Vomiting Pharmacy Consult 1 each 07/27/20 07:47 Consult Rx Perform Med Rec MISCELLANE ONCE PRN Consult order Sodium Chloride 3 ml 07/27/20 16:00 07/29/20 15:11 0.9 % Sodium Chloride Flush 3 Ml Syringe IVFLUSH 3 ml QSHIFT FLORENTIN Administration Labs CBC & Chem 7: 07/28/20 06:19 07/30/20 05:39 Microbiology Microbiology Results: Microbiology 07/27/20 06:50 Blood - Venous Blood Culture - Preliminary No growth after 48 hours. 07/27/20 06:49 Blood - Venous Blood Culture - Preliminary No growth after 48 hours. Assessment and Plan (1) COVID-19: Problem details: He has some baseline asthma contributing to respiratory efforts He has COVID with minimal oxygen requirements,may be mostly asthma Status: Acute (2) Asthma with exacerbation: Status: Acute (3) Hypoxia: Status: Acute Assessment and Plan: Acute hypoxic respiratory failure secondary to COVID pneumonia asthma exacerbation continue oxygen supplementation COVID pneumonia continue dexamethasone continue isolation continue supportive management id consulted recomended continuing dexamethasone continue antibiotic follow-up cultures currently on 4 L Asthma exacerbation continue dexamethasone continue albuterol continue Breo No nebulizer secondary to COVID diarrahae: will add cdiff DVT prophylaxis Lovenox
[2020-07-29] MEDS: Acetaminophen 325 MG TABLET 650 MG PO (21:36)
[2020-07-30] VITALS (7 sets, daily range): BP systolic 106–119; BP diastolic 57–70; PULSE 63–83; RESP 14–18; TEMP 36.4–37; O2SAT 90–96
[2020-07-30 03:56] LABS: CDIFF Ag Negative (Negative); CDIFF Internal ctrl Dots and bkg OK (V); CDiff Toxin Negative (Negative)
[2020-07-30] MEDS: Acetaminophen 325 MG TABLET 650 MG PO (05:31)
[2020-07-30] MEDS: Loperamide HCl 2 MG CAPSULE PO (05:31)
[2020-07-30 07:05] LABS: Anion Gap 15 (12-20); Blood Urea Nitrogen 21 mg/dL (9-16); Calcium 8.9 mg/dL (8.4-10.2); Carbon Dioxide 25 mmol/L (22-29); Chloride 106 mmol/L (96-108); Creatinine Clr Calc Pharmacy 134.2; Estimated Glomerular Filt Rate > 60; Glucose Random 96 mg/dL (60-115); Potassium 4.5 mmol/l (3.3-5.1); Sodium 141 mmol/L (135-145)
[2020-07-30] MEDS: Fluticasone/Vilanterol 200/25 BLST.W.DEV 1 PUFF INHALE (07:53)
[2020-07-30] MEDS: dexAMETHasone sod phosphate 4 MG/ML VIAL 6 MG IVPUSH (09:06)
[2020-07-30] MEDS: 0.9 % Sodium Chloride Flush 3 ML SYRINGE IVFLUSH ×2 (09:07→16:01)
--- NOTE | 2020-07-30 09:12 | HO.PM.IMPN ---
Subjective Subjective Date of Service: 07/30/20 Interval History: COVID pneumonia Review of Systems Shortness of breath improving, denies any chest pain or abdominal pain or fever chills, has myalgia still Physical Exam Vital Signs: Vital Signs: Last Vital Signs Temp 97.9 F 07/30/20 07:49 Pulse 73 07/30/20 07:49 Resp 18 07/30/20 07:49 BP 118/70 07/30/20 07:49 Pulse Ox 94 07/30/20 07:49 Body Mass Index 36.8 Physical exam Cvs: rrr, [id number] , no murmur res: Air entry seems improving slowly, no rales or wheezing abd: no rebound or guarding ,nt, bs present. ext pulses present , no cyanosis neuro: axo3 , nonfocal. Objective Data Current Medications Generic Name Dose Route Start Last Admin Trade Name Freq PRN Reason Stop Dose Admin Acetaminophen 650 mg 07/27/20 19:31 07/30/20 05:31 Acetaminophen 325 Mg Tablet PO 650 mg Q4H PRN Administration Fever Albuterol Sulfate 1 puff 07/27/20 10:49 Albuterol Sulfate 90 Mcg 8 Gm Inhaler INHALE RQ4H PRN Shortness of Breath/Wheezing Dexamethasone Sodium Phosphate 6 mg 07/28/20 09:00 07/29/20 09:28 Dexamethasone Sod Phosphate 4 Mg/Ml Vial IVPUSH 6 mg DAILY FLORENTIN Administration Enoxaparin Sodium 40 mg 07/27/20 11:00 07/29/20 11:41 Enoxaparin Sodium 40 Mg/0.4 Ml Syringe SUBCUT 40 mg Q24H FLORENTIN Administration Fluticasone/Vilanterol 1 puff 07/28/20 08:00 07/30/20 07:53 Fluticasone/Vilanterol 200/25 Blst.W.Dev INHALE 1 puff RDAILY FLORENTIN Administration Loperamide HCl 2 mg 07/30/20 04:51 07/30/20 05:31 Loperamide Hcl 2 Mg Capsule PO 2 mg Q4H PRN Administration Diarrhea Ondansetron HCl 4 mg 07/28/20 03:29 07/29/20 04:59 Ondansetron Hcl 4 Mg/2 Ml Vial IVPUSH 4 mg Q8H PRN Administration Nausea and Vomiting Pharmacy Consult 1 each 07/27/20 07:47 Consult Rx Perform Med Rec MISCELLANE ONCE PRN Consult order Sodium Chloride 3 ml 07/27/20 16:00 07/29/20 21:28 0.9 % Sodium Chloride Flush 3 Ml Syringe IVFLUSH 3 ml QSHIFT FLORENTIN Administration Labs CBC & Chem 7: 07/28/20 06:19 07/30/20 05:39 Microbiology Microbiology Results: Microbiology 07/27/20 06:50 Blood - Venous Blood Culture - Preliminary No growth after 48 hours. 07/27/20 06:49 Blood - Venous Blood Culture - Preliminary No growth after 48 hours. Assessment and Plan (1) COVID-19: Status: Acute (2) Asthma with exacerbation: Status: Acute (3) Hypoxia: Status: Acute Assessment and Plan: 1. Acute hypoxic respiratory failure secondary to COVID pneumonia asthma exacerbation continue oxygen supplementation COVID pneumonia continue dexamethasone,continue isolation, taper oxygen continue supportive management id consulted recomended continuing dexamethasone continue antibiotic follow-up cultures-blood culture neg@48hrs Asthma exacerbation continue dexamethasone continue albuterol continue Breo No nebulizer secondary to COVID diarrahae: neg cdiff, added loperamide DVT prophylaxis Lovenox
[2020-07-30] MEDS: Enoxaparin Sodium 40 MG/0.4 ML SYRINGE SUBCUT (11:24)
[2020-07-31] MEDS: 0.9 % Sodium Chloride Flush 3 ML SYRINGE IVFLUSH ×4 (00:47→21:27)
[2020-07-31 03:44] VITALS: BP 110/72; PULSE 64; RESP 18; TEMP 36.9; O2SAT 95
[2020-07-31] MEDS: Acetaminophen 325 MG TABLET 650 MG PO ×2 (03:59→16:40)
[2020-07-31] MEDS: Fluticasone/Vilanterol 200/25 BLST.W.DEV 1 PUFF INHALE (07:48)
[2020-07-31 08:00] VITALS: BP 108/61; PULSE 71; RESP 20; TEMP 36.6; O2SAT 93
[2020-07-31] MEDS: dexAMETHasone sod phosphate 4 MG/ML VIAL 6 MG IVPUSH (09:33)
[2020-07-31] MEDS: Enoxaparin Sodium 40 MG/0.4 ML SYRINGE SUBCUT (11:58)
[2020-07-31 12:00] VITALS: BP 112/61; PULSE 74; RESP 20; TEMP 36.9; O2SAT 95
--- NOTE | 2020-07-31 13:30 | MHC.CM.PN ---
Patient continues to need o2 at 4 liters to keep O2 sats >90%. Also on IV Dexamethasone. Discharge plan is home no services when medically stable. CM will continue to follow patient for discharge needs.
--- NOTE | 2020-07-31 15:13 | P.PNIM_ITS ---
Subjective Subjective Date of Service: 07/31/20 Interval History: COVID pneumonia but Review of Systems sob improving , denies any chest pain or cough or abdominal pain Physical Exam Vital Signs: Vital Signs: Last Vital Signs Temp 98.5 F 07/31/20 12:00 Pulse 74 07/31/20 12:00 Resp 20 07/31/20 12:00 BP 112/61 07/31/20 12:00 Pulse Ox 95 07/31/20 12:00 Body Mass Index 36.8 Physical exam Constitutional: Still short of breath HEENT: Eyes anicteric, no discharge, no rinhrae Cvs: rrr, [id number] , no murmur res: Fair air entry, slightly diminished at bases, no rales or wheezing abd: no rebound or guarding ,nt, bs present. ext pulses present , no cyanosis neuro: axo3 , nonfocal. Objective Data Current Medications Generic Name Dose Route Start Last Admin Trade Name Freq PRN Reason Stop Dose Admin Acetaminophen 650 mg 07/27/20 19:31 07/31/20 03:59 Acetaminophen 325 Mg Tablet PO 650 mg Q4H PRN Administration Fever Albuterol Sulfate 1 puff 07/27/20 10:49 Albuterol Sulfate 90 Mcg 8 Gm Inhaler INHALE RQ4H PRN Shortness of Breath/Wheezing Dexamethasone Sodium Phosphate 6 mg 07/28/20 09:00 07/31/20 09:33 Dexamethasone Sod Phosphate 4 Mg/Ml Vial IVPUSH 6 mg DAILY FLORENTIN Administration Enoxaparin Sodium 40 mg 07/27/20 11:00 07/31/20 11:58 Enoxaparin Sodium 40 Mg/0.4 Ml Syringe SUBCUT 40 mg Q24H FLORENTIN Administration Fluticasone/Vilanterol 1 puff 07/28/20 08:00 07/31/20 07:48 Fluticasone/Vilanterol 200/25 Blst.W.Dev INHALE 1 puff RDAILY FLORENTIN Administration Loperamide HCl 2 mg 07/30/20 04:51 07/30/20 05:31 Loperamide Hcl 2 Mg Capsule PO 2 mg Q4H PRN Administration Diarrhea Ondansetron HCl 4 mg 07/28/20 03:29 07/29/20 04:59 Ondansetron Hcl 4 Mg/2 Ml Vial IVPUSH 4 mg Q8H PRN Administration Nausea and Vomiting Pharmacy Consult 1 each 07/27/20 07:47 Consult Rx Perform Med Rec MISCELLANE ONCE PRN Consult order Sodium Chloride 3 ml 07/27/20 16:00 07/31/20 09:33 0.9 % Sodium Chloride Flush 3 Ml Syringe IVFLUSH 3 ml QSHIFT FLORENTIN Administration Labs CBC & Chem 7: 07/28/20 06:19 07/30/20 05:39 Microbiology Microbiology Results: Microbiology 07/27/20 06:50 Blood - Venous Blood Culture - Preliminary No growth after 48 hours. 07/27/20 06:49 Blood - Venous Blood Culture - Preliminary No growth after 48 hours. Assessment and Plan (1) COVID-19: Status: Acute (2) Asthma with exacerbation: Status: Acute (3) Hypoxia: Status: Acute Assessment and Plan: 1. Acute hypoxic respiratory failure secondary to COVID pneumonia/ asthma exacerbation: still sob COVID pneumonia continue dexamethasone,continue isolation, taper oxygen,continue supportive m anagement id consulted recomended continuing dexamethasone Id sewell : Would not give Remdesivir ,getting late 10 d nearly and not on much oxygen Procalcitonin level was low, DC the antibiotic sewell. follow-up cultures-blood culture neg@48hrs Asthma exacerbation continue dexamethasone continue albuterol continue Breo No nebulizer secondary to COVID diarrahae: neg cdiff, added loperamide. DVT prophylaxis Lovenox
[2020-07-31 16:00] VITALS: BP 111/62; PULSE 67; RESP 19; TEMP 36.7; O2SAT 97
[2020-07-31 19:56] VITALS: BP 108/61; PULSE 68; RESP 17; TEMP 37.2; O2SAT 94
[2020-07-31 23:44] VITALS: BP 106/66; PULSE 58; RESP 16; TEMP 36.3; O2SAT 98
[2020-08-01] VITALS (7 sets, daily range): BP systolic 98–129; BP diastolic 54–70; PULSE 59–77; RESP 17–19; TEMP 36.2–36.7; O2SAT 93–98
[2020-08-01] MEDS: Fluticasone/Vilanterol 200/25 BLST.W.DEV 1 PUFF INHALE (08:09)
[2020-08-01] MEDS: 0.9 % Sodium Chloride Flush 3 ML SYRINGE IVFLUSH ×3 (09:30→21:26)
[2020-08-01] MEDS: dexAMETHasone sod phosphate 4 MG/ML VIAL 6 MG IVPUSH (09:30)
[2020-08-01] MEDS: Enoxaparin Sodium 40 MG/0.4 ML SYRINGE SUBCUT (11:57)
--- NOTE | 2020-08-01 14:19 | HO.PM.IMPN ---
Subjective Subjective Date of Service: 08/01/20 Interval History: covid pneumonia Review of Systems Still feels short of breath and tired with minimal exertion denies any chest pain or abdominal pain fever or chills or diarrhea Physical Exam Vital Signs: Vital Signs: Last Vital Signs Temp 97.3 F 08/01/20 11:24 Pulse 75 08/01/20 11:24 Resp 19 08/01/20 11:24 BP 129/70 08/01/20 11:24 Pulse Ox 93 08/01/20 11:24 Body Mass Index 36.8 Physical exam: Constitutional: Seems tired, noted acute distress Cvs: rrr, [id number] , no murmur res: clear to auscultation ,no rhonchii or wheezing abd: no rebound or guarding ,nt, bs present. ext pulses present , no cyanosis neuro: axo3 , nonfocal. Objective Data Current Medications Generic Name Dose Route Start Last Admin Trade Name Freq PRN Reason Stop Dose Admin Acetaminophen 650 mg 07/27/20 19:31 07/31/20 16:40 Acetaminophen 325 Mg Tablet PO 650 mg Q4H PRN Administration Fever Albuterol Sulfate 1 puff 07/27/20 10:49 Albuterol Sulfate 90 Mcg 8 Gm Inhaler INHALE RQ4H PRN Shortness of Breath/Wheezing Dexamethasone Sodium Phosphate 6 mg 07/28/20 09:00 08/01/20 09:30 Dexamethasone Sod Phosphate 4 Mg/Ml Vial IVPUSH 6 mg DAILY FLORENTIN Administration Enoxaparin Sodium 40 mg 07/27/20 11:00 08/01/20 11:57 Enoxaparin Sodium 40 Mg/0.4 Ml Syringe SUBCUT 40 mg Q24H FLORENTIN Administration Fluticasone/Vilanterol 1 puff 07/28/20 08:00 08/01/20 08:09 Fluticasone/Vilanterol 200/25 Blst.W.Dev INHALE 1 puff RDAILY FLORENTIN Administration Loperamide HCl 2 mg 07/30/20 04:51 07/30/20 05:31 Loperamide Hcl 2 Mg Capsule PO 2 mg Q4H PRN Administration Diarrhea Ondansetron HCl 4 mg 07/28/20 03:29 07/29/20 04:59 Ondansetron Hcl 4 Mg/2 Ml Vial IVPUSH 4 mg Q8H PRN Administration Nausea and Vomiting Pharmacy Consult 1 each 07/27/20 07:47 Consult Rx Perform Med Rec MISCELLANE ONCE PRN Consult order Sodium Chloride 3 ml 07/27/20 16:00 08/01/20 09:30 0.9 % Sodium Chloride Flush 3 Ml Syringe IVFLUSH 3 ml QSHIFT FLORENTIN Administration Labs CBC & Chem 7: 07/28/20 06:19 07/30/20 05:39 Microbiology Microbiology Results: Microbiology 07/27/20 06:49 Blood - Venous Blood Culture - Final No growth after 5 days. 07/27/20 06:50 Blood - Venous Blood Culture - Final No growth after 5 days. Assessment and Plan (1) COVID-19: Status: Acute (2) Asthma with exacerbation: Status: Acute (3) Hypoxia: Status: Acute Assessment and Plan: 1. Acute hypoxic respiratory failure secondary to COVID pneumonia/ asthma exacerbation: still sob, weak , myalgia COVID pneumonia continue dexamethasone,continue isolation, taper oxygen,continue supportive management id consulted recomended continuing dexamethasone Id sewell : Would not give Remdesivir ,getting late 10 d nearly and not on much oxygen Procalcitonin level was low, DC the antibiotic sewell. follow-up cultures-blood culture neg@48hrs Asthma exacerbation continue dexamethasone continue albuterol continue Breo No nebulizer secondary to COVID diarrahae: neg cdiff, added loperamide. DVT prophylaxis Lovenox
[2020-08-02] VITALS (7 sets, daily range): BP systolic 99–114; BP diastolic 55–74; PULSE 68–91; RESP 16–20; TEMP 36.1–36.7; O2SAT 91–97
[2020-08-02] MEDS: Fluticasone/Vilanterol 200/25 BLST.W.DEV 1 PUFF INHALE (07:28)
[2020-08-02] MEDS: 0.9 % Sodium Chloride Flush 3 ML SYRINGE IVFLUSH ×3 (08:43→19:57)
[2020-08-02] MEDS: dexAMETHasone sod phosphate 4 MG/ML VIAL 6 MG IVPUSH (08:44)
--- NOTE | 2020-08-02 11:12 | MHC.CM.PN ---
CM informed pt will not DC today. Possible DC tomorrow, home with no services
[2020-08-02] MEDS: Enoxaparin Sodium 40 MG/0.4 ML SYRINGE SUBCUT (11:20)
--- NOTE | 2020-08-02 14:04 | P.PNIM_ITS ---
Subjective Subjective Date of Service: 08/03/20 Interval History: covid pneumonia Review of Systems still sob and require oxygen with walkin Manage GI as and generalized weakness seems to be improving Denies any nausea vomiting or abdominal pain or diarrhea Physical Exam Vital Signs: Vital Signs: Last Vital Signs Temp 97.3 F 08/02/20 12:00 Pulse 77 08/02/20 12:00 Resp 16 08/02/20 12:00 BP 99/57 L 08/02/20 12:00 Pulse Ox 93 08/02/20 12:00 Body Mass Index 36.8 Physical exam: Constitutional: Not in acute distress Cvs: rrr, [id number] , no murmur res:fair air entry, few scattered rhonchii. abd: no rebound or guarding ,nt, bs present. ext pulses present , no cyanosis neuro: axo3 , nonfocal. Objective Data Current Medications Generic Name Dose Route Start Last Admin Trade Name Freq PRN Reason Stop Dose Admin Acetaminophen 650 mg 07/27/20 19:31 07/31/20 16:40 Acetaminophen 325 Mg Tablet PO 650 mg Q4H PRN Administration Fever Albuterol Sulfate 1 puff 07/27/20 10:49 Albuterol Sulfate 90 Mcg 8 Gm Inhaler INHALE RQ4H PRN Shortness of Breath/Wheezing Dexamethasone Sodium Phosphate 6 mg 07/28/20 09:00 08/02/20 08:44 Dexamethasone Sod Phosphate 4 Mg/Ml Vial IVPUSH 6 mg DAILY FLORENTIN Administration Enoxaparin Sodium 40 mg 07/27/20 11:00 08/02/20 11:20 Enoxaparin Sodium 40 Mg/0.4 Ml Syringe SUBCUT 40 mg Q24H FLORENTIN Administration Fluticasone/Vilanterol 1 puff 07/28/20 08:00 08/02/20 07:28 Fluticasone/Vilanterol 200/25 Blst.W.Dev INHALE 1 puff RDAILY FLORENTIN Administration Loperamide HCl 2 mg 07/30/20 04:51 07/30/20 05:31 Loperamide Hcl 2 Mg Capsule PO 2 mg Q4H PRN Administration Diarrhea Ondansetron HCl 4 mg 07/28/20 03:29 07/29/20 04:59 Ondansetron Hcl 4 Mg/2 Ml Vial IVPUSH 4 mg Q8H PRN Administration Nausea and Vomiting Pharmacy Consult 1 each 07/27/20 07:47 Consult Rx Perform Med Rec MISCELLANE ONCE PRN Consult order Sodium Chloride 3 ml 07/27/20 16:00 08/02/20 08:43 0.9 % Sodium Chloride Flush 3 Ml Syringe IVFLUSH 3 ml QSHIFT FLORENTIN Administration Labs CBC & Chem 7: 07/28/20 06:19 07/30/20 05:39 Microbiology Microbiology Results: Microbiology 07/27/20 06:49 Blood - Venous Blood Culture - Final No growth after 5 days. 07/27/20 06:50 Blood - Venous Blood Culture - Final No growth after 5 days. Assessment and Plan (1) COVID-19: Status: Acute (2) Asthma with exacerbation: Status: Acute (3) Hypoxia: Status: Acute Assessment and Plan: 1. Acute hypoxic respiratory failure secondary to COVID pneumonia/ asthma exacerbation: still sob, weak , myalgia COVID pneumonia seen by ID: Would not give Remdesivir ,getting late 10 d nearly and not on much oxygen Procalcitonin level was low, DC the antibiotic sewell. follow-up cultures-blood culture neg@48hrs continue dexamethasone,continue isolation, taper oxygen,continue supportive ma nagement, hopefully will be better without oxygen in 24hrs and off oxygen with wlaking then can go home , otherwise mihght need home oxygen id consulted recomended continuing dexamethasone Asthma exacerbation continue dexamethasone continue albuterol continue Breo No nebulizer secondary to COVID diarrahae: neg cdiff, added loperamide. DVT prophylaxis Lovenox
[2020-08-03] VITALS (7 sets, daily range): BP systolic 104–114; BP diastolic 54–70; PULSE 61–81; RESP 16–18; TEMP 36.3–37.1; O2SAT 91–97
[2020-08-03] MEDS: 0.9 % Sodium Chloride Flush 3 ML SYRINGE IVFLUSH ×3 (08:26→23:40)
[2020-08-03] MEDS: dexAMETHasone sod phosphate 4 MG/ML VIAL 6 MG IVPUSH (08:27)
[2020-08-03] MEDS: Fluticasone/Vilanterol 200/25 BLST.W.DEV 1 PUFF INHALE (08:30)
[2020-08-03] MEDS: Enoxaparin Sodium 40 MG/0.4 ML SYRINGE SUBCUT (12:18)
[2020-08-04] VITALS: BP 119/63; PULSE 59; RESP 18; TEMP 36.8; O2SAT 96
[2020-08-04 03:42] VITALS: BP 132/61; PULSE 64; RESP 18; TEMP 37; O2SAT 97
[2020-08-04] MEDS: Fluticasone/Vilanterol 200/25 BLST.W.DEV 1 PUFF INHALE (08:18)
[2020-08-04 08:19] VITALS: PULSE 79; O2SAT 96
[2020-08-04 08:40] VITALS: BP 108/62; PULSE 77; RESP 18; TEMP 37; O2SAT 94
[2020-08-04] MEDS: 0.9 % Sodium Chloride Flush 3 ML SYRINGE IVFLUSH (08:44)
[2020-08-04] MEDS: dexAMETHasone sod phosphate 4 MG/ML VIAL 6 MG IVPUSH (08:45)
--- NOTE | 2020-08-04 08:48 | PC.NURSE ---
pt ambulatory in room without oxygen, oxygen saturation 96%, pt not complaining of shortness of breath. will continue to monitor
[2020-08-04] MEDS: Enoxaparin Sodium 40 MG/0.4 ML SYRINGE SUBCUT (11:09)
--- NOTE | 2020-08-04 14:01 | PM.DS ---
DS: Providers Provider Date of admission: 07/27/20 09:04 Primary care physician: Unknown Physician Consults: 07/27/20 11:18 Consult to Infectious Diseases Routine Consulting Provider: Inessa Pastor Reason for consultation: covid pneumonia DS: Diagnosis Discharge Diagnosis (1) COVID-19: Status: Acute (2) Asthma with exacerbation: Status: Acute (3) Hypoxia: Status: Acute DS: Medications Discharge Medications Home Medications: Home Medications Medication Instructions Recorded Confirmed albuterol sulfate See Rx Instructions .ROUTE 07/27/20 .COMPLEX PRN Previous Rx's Medication Instructions Recorded dexamethasone 4 mg PO DAILY 5 Days #5 tab 07/25/20 DS: Summary Hospital Course Hospital Course: patient was admitted for covid associated respriatory failure with hypoxia and required oxygen and treated with IV dexamethasone and has done well and is off Oxygen and satting 94 on room air, no shortness of breath. Has several more days of steroid and may continue inhalers at home for asthma and finish self isolation for total of 14 days. Time Spent with Patient Time attestation: Total time spent providing and/or coordinating discharge services: Physical Exam Vital Signs: Vital Signs: Last Vital Signs Temp 98.6 F 08/04/20 08:40 Pulse 77 08/04/20 08:40 Resp 18 08/04/20 08:40 BP 108/62 08/04/20 08:40 Pulse Ox 94 08/04/20 08:40 Body Mass Index 36.8 General: AO X 3, no acute distress Resp: normal lung expension CVS: S1,S2,RRR GI: +BS, NT, no distention Skin: No rash Neuro: motor grossly intact Psych: appropriate affect DS: Data Data Completed and Pending Labs on day of discharge: 07/27/20 ECG 12 lead EKG Routine 07/27/20 05:42 Albuterol Sulfate [Ventolin] 4 puff INHALE ONCE ONE dexAMETHasone [Decadron] 4 mg PO ONCE ONE 07/27/20 05:43 XR chest 1V Stat 07/27/20 06:29 Doxycycline Hyclate [Vibramycin] 100 mg PO ONCE ONE 07/27/20 06:36 Acetaminophen [Tylenol] 650 mg PO ONCE ONE 07/27/20 06:44 Albuterol Sulfate [Ventolin] 4 puff INHALE ONCE ONE guaiFEN/Codeine SF 200/20/10ML [Robitussin AC 200/20/10ML] 10 ml PO ONCE ONE 07/27/20 06:45 0.9 % Sodium Chloride [Ns] 1,000 ml IVCONT 999 mls/hr 07/27/20 06:49 Blood Culture X2 [BC] Stat 07/27/20 06:50 Basic Metabolic Panel Stat Complete Blood Count Auto Diff Stat D Dimer Stat Ferritin Stat HIV Ab/Ag Urgent Lactate Dehydrogenase Stat Lactic Acid Stat Liver Panel Stat Procalcitonin Stat Troponin-I High Sensitivity Stat 07/27/20 07:46 ECG 12 lead EKG Stat EKG Documentation DIRECTED 07/27/20 07:59 Add Laboratory Test Stat 07/27/20 09:01 Transfer Order Routine 07/27/20 11:05 Flu Vacc [id number](6mos up)/PF [Fluarix Quad [id number]] 0.5 ml IM .ONCE ONE 07/27/20 11:07 EKG Documentation DIRECTED 07/27/20 12:00 Azithromycin [Zithromax] 500 mg 0.9 % Sodium Chloride [Ns] 250 ml IV DAILY cefTRIAXone sodium [Rocephin] 1 gm 0.9 % Sodium Chloride [Ns] 50 ml IV Q24H 07/27/20 13:10 cefTRIAXone sodium [Rocephin] 1 gm .ROUTE .STK-MED ONE 07/27/20 15:08 Azithromycin [Zithromax] 500 mg IV .STK-MED ONE 07/27/20 18:24 Procalcitonin Urgent 07/28/20 ECG 12 lead EKG Stat 07/28/20 00:42 EKG Documentation DIRECTED 07/28/20 01:07 Morphine Sulfate 3 mg IVPUSH ONCE ONE 07/28/20 01:26 Troponin-I High Sensitivity Stat 07/28/20 03:48 LORazepam [Ativan] 1 mg IVPUSH ONCE ONE 07/28/20 06:19 Complete Blood Count Auto Diff DAILY@0600 07/28/20 06:21 Basic Metabolic Panel DAILY@0600 07/28/20 08:33 Azithromycin [Zithromax] 500 mg IV .STK-MED ONE 07/28/20 09:00 Azithromycin [Zithromax] 500 mg 0.9 % Sodium Chloride [Ns] 250 ml IV DAILY 07/28/20 11:58 cefTRIAXone sodium [Rocephin] 1 gm .ROUTE .STK-MED ONE 07/29/20 09:19 Azithromycin [Zithromax] 500 mg IV .STK-MED ONE 07/29/20 11:37 cefTRIAXone sodium [Rocephin] 1 gm .ROUTE .STK-MED ONE 07/29/20 21:48 CDiff with Reflex to PCR Routine 07/30/20 05:39 Basic Metabolic Panel DAILY@0600 Laboratory Last Values WBC 10.4 X10*3/uL (4.8-10.8) 07/28/20 06:19 RBC 5.33 X10*6/uL (4.60-5.80) 07/28/20 06:19 Hgb 14.9 g/dl (14.0-18.0) 07/28/20 06:19 Hct 42.9 % (42-52) 07/28/20 06:19 MCV 80.5 fL (80-98) 07/28/20 06:19 MCH 28.0 pg (27.0-33.0) 07/28/20 06:19 MCHC 34.7 g/dl (31.0-36.0) 07/28/20 06:19 RDW 12.6 % (11.0-16.0) 07/28/20 06:19 Plt Count 251 X10*3/uL (160-400) 07/28/20 06:19 MPV 11.2 fL (9.4-12.4) 07/28/20 06:19 Immature Gran % (Auto) 0.7 % (0.0-0.4) H 07/28/20 06:19 Neut % (Auto) 76.3 % (45-73) H 07/28/20 06:19 Lymph % (Auto) 14.7 % (20-40) L 07/28/20 06:19 [place] % (Auto) 8.3 % (2-11) 07/28/20 06:19 Eos % (Auto) 0.0 % (0-4) 07/28/20 06:19 Baso % (Auto) 0.0 % (0-2) 07/28/20 06:19 Lymph # (Auto) 1.5 X10*3/uL (1.2-4.9) 07/28/20 06:19 [place] # (Auto) 0.9 X10*3/uL (0.1-1.2) 07/28/20 06:19 Eos # (Auto) 0.0 X10*3/uL (0.0-0.4) 07/28/20 06:19 Baso # (Auto) 0.0 X10*3/uL (0.0-0.2) 07/28/20 06:19 Abs Immat Gran (auto) 0.07 X10*3/uL (0.00-0.03) H 07/28/20 06:19 Absolute Neuts (auto) 8.0 X10*3/uL (2.0-8.3) 07/28/20 06:19 Absolute Nucleated RBC 0.000 X10*3/uL (0.0-0.012) 07/28/20 06:19 Nucleated RBC % (auto) 0.0 /100WBC (0.0-0.2) 07/28/20 06:19 D-Dimer 412 NG/ML 07/27/20 06:50 Sodium 141 mmol/L (135-145) 07/30/20 05:39 Potassium 4.5 mmol/l (3.3-5.1) 07/30/20 05:39 Chloride 106 mmol/L (96-108) 07/30/20 05:39 Carbon Dioxide 25 mmol/L (22-29) 07/30/20 05:39 Anion Gap 15 (12-20) 07/30/20 05:39 BUN 21 mg/dL (9-16) H 07/30/20 05:39 Creatinine 0.88 mg/dL (0.5-1.4) 07/30/20 05:39 Estim Creat Clear Calc 134.2 07/30/20 05:39 Estimated GFR > 60 07/30/20 05:39 Random Glucose 96 mg/dL (60-115) 07/30/20 05:39 Lactic Acid 0.9 mmol/L (0.5-2.0) 07/27/20 06:50 Calcium 8.9 mg/dL (8.4-10.2) D 07/30/20 05:39 Ferritin 542 ng/mL (20-250) H 07/27/20 06:50 Total Bilirubin 0.8 mg/dL (0.0-1.0) 07/27/20 06:50 Direct Bilirubin 0.4 mg/dL (0.0-0.5) 07/27/20 06:50 AST 19 U/L (5-37) 07/27/20 06:50 ALT 26 U/L (0-40) 07/27/20 06:50 Alkaline Phosphatase 62 U/L (39-117) 07/27/20 06:50 Lactate Dehydrogenase 330 U/L (118-273) H 07/27/20 06:50 Troponin I High Sens < 3.5 ng/L (<3.5-35.0) 07/28/20 01:26 Total Protein 6.6 g/dL (6.5-8.0) 07/27/20 06:50 Albumin 3.8 g/dL (3.5-5.0) 07/27/20 06:50 Procalcitonin 0.09 ng/mL 07/27/20 18:24 C. difficile Toxin A&B Negative (Negative) 07/30/20 02:45 C. difficile Antigen Negative (Negative) 07/30/20 02:45 C. difficile Interpret SEE NOTE 07/30/20 02:45 HIV 1&2 Ab/P24 Ag 4thGn Nonreactive (Nonreactive) 07/27/20 06:50 Discharge Plan Discharge Anticipated Discharge Date/Time: 08/04/20 13:30 Patient Disposition: Home, Self-Care Referrals: Physician,Unknown [Primary Care Provider] - Discharge Medications: Continued albuterol sulfate 90 mcg/actuation Hfa Aerosol Inhaler See Rx Instructions .ROUTE .COMPLEX PRN (Reason: Shortness Of Breath) RF: 0 dexamethasone 4 mg tablet 4 mg PO DAILY 5 Days Qty: 5 RF: 0 Discharge Orders: Discharge Order (Routine); Ordered 08/04/20 Ordered By: Richie Hearn Diet: advance to usual diet Activity on Discharge: As tolerated Discharge Date/Time: 08/04/20 15:00 Visit Report Forms: Patient Portal Discharge page Care Plan Goals: full recovery from covid Health Concerns: covid 19, and asthma Plan of Treatment: finish taken Dexamethasone and follow covid 19 isolation guideline 14 days from when you were tested positive since you were tested on July 25 so have for more days of self isolation and you should wear mask at all time
--- NOTE | 2020-08-04 14:18 | MHC.CM.PN ---
pt to [place] home today with no services
== END 2020-08-04 15:00 | disposition home or self-care (01) | DRG 137 ==
LOC: HO.ED 07:48 → HO.IMC 09:22
PROVIDERS: Internal Medicine; Admitting Provider Internal Medicine; Emergency Provider Emergency Medicine; Visit Provider Internal Medicine
DX: U07.1 COVID-19 (principal); J96.01 Acute respiratory failure with hypoxia; J12.89 Other viral pneumonia; J45.901 Unspecified asthma with (acute) exacerbation; Z20.828 Contact with and (suspected) exposure to other viral communicable diseases; Z23 Encounter for immunization; Z88.5 Allergy status to narcotic agent; Z79.899 Other long term (current) drug therapy
CPT/HCPCS: 36415; 71045; 80048; 80076; 82728; 83605; 83615; 84145; 84484; 85025; 85379; 87040; 87324; 87389; 87449; 90686; 93005; 94640; 94664; 96360; 99285; J0456; J0696; J1100; J1650; J2060; J2405; J8540